=== PATIENT | male | born 2000 | race Caucasian/White ===

== ENCOUNTER 2024-06-17 13:05 | Emergency (ER) | payer OTHER, SELFPAY ==
[2024-06-17 13:09] VITALS: BP 131/76
--- NOTE | 2024-06-17 15:32 | ED.GENMED ---
History of Present Illness
General
Chief Complaint: Fall
Source: patient and family
Time Seen by Provider: 06/17/24 15:26
History of Present Illness
History of Present Illness:
24-year-old male with past medical history of autism presenting to the emergency department with mother for evaluation after he reportedly fell down a few steps Tuesday and sustained abrasions to the right shoulder/neck area, right upper arm and
right knee. Patient had been complaining of some soreness and was very concerned about the abrasions so mother decided bring patient to the ER further evaluation. No reported loss consciousness, headaches, vomiting, visual changes. No other
injuries sustained.
Past History
Past History
ED Past Medical History: Other (Autism)
ED Past Surgical History: None
Social History
Tobacco: Non-smoker
Alcohol: None
Drug: None
Personal: Single
Living: with family
Review of Systems
Review of Systems
All Other Systems: ROS reviewed and negative except as documented in HPI and ROS
Phy Exam
Physical Exam
Physical Exam:
GENERAL: Alert , in no apparent distress
EYE: conjunctiva clear
Head: Normocephalic atraumatic
NECK: Supple, superficial abrasion that is well-healing without sign of patient along the right trapezius distribution
ENT: mmm.
LUNGS: no acute respiratory distress
NEUROLOGICAL: Alert and oriented
SKIN: Warm and dry, skin intact. Abrasion to the right mid humerus and right anterior knee with no active bleeding or surrounding erythema
MUSCULOSKELETAL: well perfused.
PSYCH: Normal and appropriate interaction.
Scores
Heart Failure Risk
Heart Failure Risk Score: Not Applicable
Heart Score for Chest Pain Patients
STEMI patient?: Not applicable
Withdrawal Assessment of Alcohol
Withdrawal Assessment Completed?: Not applicable
Course
Vital Signs
Initial and Last Documented VS:
Initial Vital Signs
Temp Pulse Resp BP Pulse Ox
97.9 F 90 16 131/76 100
06/17/24 13:09 06/17/24 13:09 06/17/24 13:09 06/17/24 13:09 06/17/24 13:09
Last Documented Vital Signs
Temp Pulse Resp BP Pulse Ox
97.9 F 90 16 131/76 100
06/17/24 13:09 06/17/24 13:09 06/17/24 13:09 06/17/24 13:09 06/17/24 13:09
MDM/Problems Addressed
Differential Diagnosis Includes:
Accidental fall, abrasions, I do not have concern for fracture nor intracranial pathologies
MDM/Problems Addressed:
24-year-old male presenting to the emergency department for evaluation of an accidental fall occurring close to 48 hours ago. No loss consciousness, no headaches. Superficial abrasions noted. No obvious deformities to extremities. Discussed risk
versus benefit of imaging with mother and at this time decision was ultimately made to forego imaging. Motrin/Tylenol as needed for pain. Patient is otherwise stable for discharge home.
*Pulse Oximetry
Patient hypoxic: no
*Critical Care Note
Total Time (30-74mins, 75-104mins- exclusive of procedures): Not Applicable
ED Attending Note
-
Portions of this chart may have been created with voice recognition software.� Occasional wrong word or��sound alike� substitutions may have occurred due to the inherent limitations of voice recognition software.
Discharge Plan
Departure
Patient Disposition: Home (Routine Discharge)
Date of Disposition: 06/17/24
Time of Disposition: 15:32
Patient with high blood pressure during this ER visit?: No
Discharge Problem:
Accidental fall, Abrasion of right shoulder, Abrasion of knee, right, Abrasion of arm, right
Instructions: Taking care of cuts, scrapes, and puncture wounds
Interventions
Interventions:
*General Assessment Last Done: 06/17/24 13:09
*ED COVID-19 Vaccine History Last Done: 06/17/24 13:09
Discharge Date and Time
Print Language: ALGERIAN
== END 2024-06-17 15:55 | disposition home or self-care (01) ==
LOC: EMR 13:05
PROVIDERS: EMERGENCY PHYSICIAN Emergency Medicine; FAMILY PHYSICIAN Family Medicine
DX: S40.211A Abrasion of right shoulder, initial encounter (principal); S80.211A Abrasion, right knee, initial encounter; S40.811A Abrasion of right upper arm, initial encounter; W10.9XXA Fall (on) (from) unspecified stairs and steps, initial encounter; F84.0 Autistic disorder
CPT/HCPCS: 99282